=== PATIENT | female | born 1975 | race Native Hawaiian/Other Pacific Islander ===

== ENCOUNTER 2017-05-17 17:49 | Observation (INO) | payer OTHER ==
[~2017-05-17] VITALS: Ht 152.4 cm; Wt 65.9 kg
[2017-05-17 18:05] VITALS: BP 126/70; TEMP 98.5
[2017-05-17] MEDS ORDERED: LISI20TA11 PO (18:27)
[2017-05-17] MEDS ORDERED: NAPROSYN250 MG OR (18:28)
[2017-05-17] MEDS ORDERED: CELEBREX100 MG PO (18:28)
[2017-05-17 18:55] LABS: PLATELET COUNT 349 K/uL (152-353)
[2017-05-17 19:10] LABS: SODIUM 135 mmol/L (136-145)
[2017-05-18 00:39] VITALS: BP 114/59; TEMP 98.5; Ht 152.4 cm; Wt 65.9 kg
[2017-05-18 04:00] VITALS: BP 107/52; TEMP 97.8
[2017-05-18 05:58] LABS: POTASSIUM 3.6 mmol/L (3.6-5.2); SODIUM 140 mmol/L (136-145)
[2017-05-18 06:11] LABS: PLATELET COUNT 312 K/uL (152-353)
[2017-05-18 08:00] VITALS: BP 111/48; TEMP 98.1
[2017-05-18] MEDS ORDERED: CELEXA10 MG PO (09:51)
[2017-05-18 12:00] VITALS: BP 94/54; TEMP 98.1
== END 2017-05-18 16:55 | disposition home or self-care (01) ==
LOC: ED 17:49 → MED/SURG 21:40
PROVIDERS: Internal Medicine
DX: K85.80 Other acute pancreatitis without necrosis or infection (principal); M79.7 Fibromyalgia
CPT/HCPCS: 36415; 80053; 81000; 82150; 83690; 83735; 84100; 85027; 96360; 96365; 96366; 96372; 96374; 96375; 99220; 99284; G0378; J1170; J1885; Q9963

== ENCOUNTER 2017-05-25 12:42 | Emergency (ER) | payer OTHER ==
[~2017-05-25] VITALS: Ht 152.4 cm; Wt 65.8 kg
[~2017-05-25 12:42] MED LIST: CELEBREX100 MG PO; CELEXA10 MG PO; LISI20TA11 PO; NAPROSYN250 MG OR
[2017-05-25 12:55] VITALS: TEMP 98.3
[2017-05-25 13:30] LABS: PLATELET COUNT 308 K/uL (152-353)
[2017-05-25 13:38] LABS: POTASSIUM 3.7 mmol/L (3.6-5.2); SODIUM 133 mmol/L (136-145)
[2017-05-25 15:52] VITALS: BP 128/84
== END 2017-05-25 15:53 | disposition home or self-care (01) ==
LOC: ED 12:42
PROVIDERS: Specialist
DX: R10.9 Unspecified abdominal pain (principal); R10.2 Pelvic and perineal pain
CPT/HCPCS: 36415; 80048; 80307; 81000; 82150; 83690; 83735; 85027; 96361; 96374; 99283; G0479; J1885

== ENCOUNTER 2019-04-10 16:05 | Emergency (ER) | payer OTHER ==
[~2019-04-10] VITALS: Ht 152.4 cm; Wt 75.8 kg
[2019-04-10] MEDS ORDERED: METOPROLOL25 M1 PO (16:18)
[2019-04-10] MEDS ORDERED: BUSPIRONE HYDRO15 MG PO (16:19)
[2019-04-10] MEDS ORDERED: GABA300C2 PO (16:19)
[2019-04-10] MEDS ORDERED: LEXAPRO20 MG PO (16:20)
[2019-04-10 16:36] LABS: PLATELET COUNT 373 K/uL (152-353)
[2019-04-10 16:43] LABS: POTASSIUM 3.9 mmol/L (3.6-5.2)
[2019-04-10 19:45] VITALS: BP 154/86; TEMP 98.6
== END 2019-04-10 19:45 | disposition home or self-care (01) ==
LOC: ED 16:05
PROVIDERS: Emergency Medicine
DX: R10.84 Generalized abdominal pain (principal); D72.829 Elevated white blood cell count, unspecified
CPT/HCPCS: 80053; 81000; 81025; 82150; 83690; 85027; 96374; 99284; J1885; Q9963

== ENCOUNTER 2021-06-08 10:33 | Outpatient (CLI) | payer OTHER ==
[~2021-06-08 10:33] MED LIST changes: +BUSPIRONE HYDRO15 MG PO; +GABA300C2 PO; +LEXAPRO20 MG PO; +METOPROLOL25 M1 PO
== END 2021-06-08 22:00 | disposition home or self-care (01) ==
LOC: RAD 10:33
PROVIDERS: ATTEND Nurse Practitioner Family
DX: R52 Pain, unspecified (principal); G89.29 Other chronic pain; M54.5 Low back pain; M54.2 Cervicalgia; M25.561 Pain in right knee; M25.562 Pain in left knee

== ENCOUNTER 2023-01-15 13:13 | Emergency (ER) | payer OTHER ==
[~2023-01-15] VITALS: Ht 152.4 cm; Wt 70.3 kg
[2023-01-15 13:29] VITALS: BP 140/72; TEMP 97.3
== END 2023-01-15 14:01 | disposition home or self-care (01) ==
LOC: ED 13:13
DX: K02.9 Dental caries, unspecified (principal)
CPT/HCPCS: 99283

== ENCOUNTER 2023-05-23 10:21 | Emergency (ER) | payer OTHER ==
[~2023-05-23] VITALS: Ht 152.4 cm; Wt 69.4 kg
[2023-05-23 10:37] VITALS: BP 145/75; TEMP 98.2
[2023-05-23 11:41] LABS: PLATELET COUNT 361 K/uL (152-353)
[2023-05-23 11:54] LABS: POTASSIUM 4.4 mmol/L (3.6-5.2)
== END 2023-05-23 12:55 | disposition home or self-care (01) ==
LOC: ED 10:21
PROVIDERS: Family Medicine
DX: N39.0 Urinary tract infection, site not specified (principal); N32.89 Other specified disorders of bladder; I10 Essential (primary) hypertension; F17.210 Nicotine dependence, cigarettes, uncomplicated
CPT/HCPCS: 80053; 80307; 81000; 81025; 83605; 85027; 87086; 87088; 99283; J0696; J1885